=== PATIENT | female | born 1990 | race Caucasian/White ===

== ENCOUNTER → 2025-03-28 | Outpatient (CLI) | payer OTHER ==
[2025-03-29 12:35] LABS: Bacterial Vaginosis PCR Negative (NEGATIVE); Candida glabrata-krusei, PCR NOT DETECTED (NOT DETECT)
[2025-03-29 13:53] LABS: Candida Group, PCR DETECTED (NOT DETECT)
== END ==
LOC: LAB 14:50 → LAB SHORT 14:50
PROVIDERS: Obstetrics & Gynecology
DX: N89.8 Other specified noninflammatory disorders of vagina (principal)
CPT/HCPCS: 81515

== ENCOUNTER 2025-03-29 23:03 | Emergency (ER) | payer SELFPAY ==
[~2025-03-29] VITALS: Ht 162.6 cm; Wt 61.2 kg
== END 2025-03-30 01:09 | disposition home or self-care (01) ==
LOC: ER 23:03
DX: R22.0 Localized swelling, mass and lump, head (principal); R21 Rash and other nonspecific skin eruption; T37.8X5A Adverse effect of other specified systemic anti-infectives and antiparasitics, initial encounter; Z79.899 Other long term (current) drug therapy
CPT/HCPCS: 96372; 99283; A9270; J2919